=== PATIENT | female | born 1970 | race Caucasian/White ===

== ENCOUNTER 2017-01-21 17:38 | Emergency (ER) | payer BC ==
[2017-01-21 18:02] VITALS: BP 140/93
--- NOTE | 2017-01-21 18:27 | UC ---
Abdominal Pain Female HPI - HPI Summary HPI Summary: LLQ abd pain intermittent x 1 week, worse today. Pt had mechanical fall over a week ago that resulted in back pain. No fever. No N,V,D. Is also concerned that she has swelling or lymph nodes in her left ant neck. - History of Current Complaint Chief Complaint: UCAbdominalPain Stated Complaint: ABD PAIN Time Seen by Provider: 01/21/17 18:10 Hx Obtained From: Patient Hx Last Menstrual Period: may ?: No Onset/Duration: Gradual Onset, Lasting Days, Still Present Timing: Constant Severity Initially: Moderate Pain Intensity: 5 Location: Discrete At: LLQ Radiates: Yes Radiates to: Back Character: Aching, Dull Aggravating Factor(s): Nothing Alleviating Factor(s): Nothing Associated Signs and Symptoms: Positive: Back Pain. Negative: Fever, Urinary Symptoms, Nausea, Vomiting, Diarrhea - Risk Factors Ectopic Risk Factor: Negative Ovarian Torsion Risk Factor: Negative Allergies/Adverse Reactions: Allergies Allergy/AdvReac Type Severity Reaction Status Date / Time Amoxicillin [From Augmentin] Allergy Unknown Verified 01/21/17 19:29 Reaction Details Ciprofloxacin [From Cipro] Allergy Unknown Verified 01/21/17 19:29 Reaction Details Clavulanic Acid Allergy Unknown Verified 01/21/17 19:29 [From Augmentin] Reaction Details Meperidine [From Demerol HCl] AdvReac Severe Hallucinati Verified 01/21/17 19:29 ons MORPHINE AdvReac Severe Hallucinati Uncoded 01/21/17 19:29 ons Home Medications: Home Medications Cholecalciferol [Vitamin D] 01/21/17 [History] PMH/Surg Hx/FS Hx/Imm Hx Endocrine History Of: Reports: Diabetes Respiratory History Of: Reports: Asthma - Surgical History Surgical History: Yes Surgery Procedure, Year, and Place: TONSILLECTOMY, 2 MISCARRIAGES, TUBAL LIGATION - Family History Known Family History: Positive: Hypertension - Social History Lives: With Family Alcohol Use: Rare Substance Use Type: None Smoking Status (MU): Former Smoker Type: Cigarettes Have You Smoked in the Last Year: No When Did the Patient Quit Smoking/Using Tobacco: 2002 Review of Systems Constitutional: Negative Skin: Negative Eyes: Negative ENT: Negative Respiratory: Negative Cardiovascular: Negative Gastrointestinal: Abdominal Pain Genitourinary: Negative Motor: Negative Neurovascular: Negative Musculoskeletal: Arthralgia - back pain Neurological: Negative Psychological: Negative All Other Systems Reviewed And Are Negative: Yes Physical Exam Triage Information Reviewed: Yes Appearance: Well-Appearing, Well-Nourished, Pain Distress Vital Signs: Initial Vital Signs Temp 97.1 F 01/21/17 17:56 Pulse 87 01/21/17 17:56 Resp 16 01/21/17 17:56 BP 140/93 01/21/17 17:56 Pulse Ox 96 01/21/17 17:56 Vital Signs Reviewed: Yes Eyes: Positive: Conjunctiva Clear ENT: Positive: Normal ENT inspection Neck: Positive: Supple, Nontender, No Lymphadenopathy Respiratory: Positive: Lungs clear, Normal breath sounds, No respiratory distress Cardiovascular: Positive: RRR, No Murmur, Pulses Normal, Brisk Capillary Refill Abdomen Description: Positive: Soft, Guarding - LLQ, Other: - tenderness LLQ, + guarding. Negative: Nontender, No Organomegaly, CVA Tenderness (R), CVA Tenderness (L), Distended, Hernia @, Hepatomegaly, McBurney's Point Tenderness, Peritoneal Signs, Pulsatile Mass, Splenomegaly Bowel Sounds: Positive: Present Musculoskeletal: Positive: Strength Intact, ROM Intact Neurological: Positive: Alert, Muscle Tone Normal Psychological Exam: Normal Skin Exam: Normal Abd Pain Female Course/Dx - Course Course Of Treatment: Pt's urine does not reveal the source of her abd pain. Needs higher level of care. Transfer to ED by private car - Differential Dx/Diagnosis Differential Diagnosis: ACS, Bowel Obstruction, Constipation, Diverticulitis, Renal Colic, Urinary Tract Infection Provider Diagnoses: LLQ abd pain. elevated BP without dx of HTN. glucosuria Discharge - Discharge Plan Condition: Stable Disposition: AGAINST MEDICAL ADVICE Referrals: iLsa Boucher MD [Primary Care Provider] -
== END 2017-01-21 18:59 | disposition left against medical advice (07) ==
LOC: UCEAST 17:38
DX: R10.32 Left lower quadrant pain (principal); R81 Glycosuria; R03.0 Elevated blood-pressure reading, without diagnosis of hypertension; Z32.02 Encounter for pregnancy test, result negative; E11.9 Type 2 diabetes mellitus without complications; J45.909 Unspecified asthma, uncomplicated; Z88.5 Allergy status to narcotic agent; Z88.1 Allergy status to other antibiotic agents; Z87.891 Personal history of nicotine dependence
CPT/HCPCS: 81003; 84702; 99212; G0463

== ENCOUNTER 2017-01-21 19:16 | Emergency (ER) | payer BC ==
[2017-01-21] MEDS ORDERED: NS 0.9% 1000 ML* 1,000 ML IV ONE (20:18)
[2017-01-21 20:35] LABS: Hematocrit 41 % (35-47); Hemoglobin 13.7 g/dl (12.0-16.0); Mean Corpuscular HGB Conc 33 g/dl (31-36); Mean Corpuscular Hemoglobin 29 pg (27-31); Mean Corpuscular Volume 86 fL (80-97); Mean Platelet Volume 9 um3 (7.4-10.4); Red Cell Distribution Width 14 % (10.5-15); White Blood Count 9.7 10^3/ul (3.5-10.8)
[2017-01-21 20:50] LABS: Albumin 4.1 g/dL (3.2-5.2); BUN/Creatinine Ratio 17.5 (8-20); C Reactive Protein 2.01 mg/L (< 5.00); Calcium 9.2 mg/dL (8.6-10.3); EGFR African American 130.3 (>60); EGFR Non-African American 101.3 (>60); Globulin 2.5 g/dL (2-4); Potassium 3.5 mmol/L (3.5-5.0); Total Bilirubin 0.5 mg/dL (0.2-1.0); Total Protein 6.6 g/dL (6.4-8.9)
[2017-01-21 21:40] LABS: Urine Bilirubin Negative (Negative); Urine Glucose 2+(150 mg/dL) (Negative); Urine Nitrite Negative (Negative)
[2017-01-21] MEDS ORDERED: Iohexol 300* (CONTRAST) 10 ML SDV IV ONE (22:08)
[2017-01-21] MEDS ORDERED: Iodixanol* (CONTRAST) 320 MG/ML 100 ML SDV IV ONE (22:29)
[2017-01-21 23:51] VITALS: BP 138/81
--- NOTE | 2017-01-22 00:20 | ED ---
Jayson Jovel Michael, scribed for Jacque Martinez MD on 01/21/17 at 2014 . Abdominal Pain/Female - HPI Summary HPI Summary: 46 y/o female was referred to the ED by [facility] presenting with constant LLQ abd pain that started one week ago. The pt states that the pain waxes and wanes. The pain is aggravated with movement, and it does not radiate to the back. The pt states she had a mechanical fall over one week ago resulting in back pain. She denies n/v/d, dysuria, fever, and constipation. The PMHx is significant for DM, anxiety, and ADHD. - History of Current Complaint Chief Complaint: EDAbdPain Stated Complaint: ABD PAIN Hx Obtained From: Patient, Medical Records Hx Last Menstrual Period: may Onset/Duration: Gradual Onset, Lasting Weeks, Still Present Timing: Constant Severity Initially: Mild Severity Currently: Mild Pain Intensity: 1 Pain Scale Used: 0-10 Numeric Location: Discrete At: LLQ Radiates: No Associated Signs and Symptoms: Positive: Back Pain. Negative: Fever, Constipation, Urinary Symptoms, Nausea, Vomiting, Diarrhea Allergies/Adverse Reactions: Allergies Allergy/AdvReac Type Severity Reaction Status Date / Time Amoxicillin [From Augmentin] Allergy Unknown Verified 01/21/17 19:29 Reaction Details Ciprofloxacin [From Cipro] Allergy Unknown Verified 01/21/17 19:29 Reaction Details Clavulanic Acid Allergy Unknown Verified 01/21/17 19:29 [From Augmentin] Reaction Details Meperidine [From Demerol HCl] AdvReac Severe Hallucinati Verified 01/21/17 19:29 ons MORPHINE AdvReac Severe Hallucinati Uncoded 01/21/17 19:29 ons PMH/Surg Hx/FS Hx/Imm Hx Endocrine/Hematology History: Reports: Hx Diabetes Respiratory History: Reports: Hx Asthma Psychiatric History: Reports: Hx Anxiety, Hx Attention Deficit Hyperactivity Disorder - Cancer History Hx Chemotherapy: No Hx Radiation Therapy: No - Surgical History Surgery Procedure, Year, and Place: TONSILLECTOMY, 2 MISCARRIAGES, TUBAL LIGATION Infectious Disease History: No Infectious Disease History: 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 Negative: Vomiting, Diarrhea, Nausea Negative: dysuria All Other Systems Reviewed And Are Negative: Yes Physical Exam Triage Information Reviewed: Yes Vital Signs On Initial Exam: Initial Vitals Temp Pulse Resp BP Pulse Ox 98.3 F 82 16 155/89 98 01/21/17 19:20 01/21/17 19:20 01/21/17 19:20 01/21/17 19:20 01/21/17 19:20 Vital Signs Reviewed: Yes Appearance: Positive: Well-Appearing, No Pain Distress Skin: Positive: Warm, Skin Color Reflects Adequate Perfusion, Dry Eyes: Positive: EOMI, ZULEYMA ENT: Positive: Pharynx normal, TMs normal Neck: Positive: Supple, Nontender Respiratory/Lung Sounds: Positive: Clear to Auscultation, Breath Sounds Present. Negative: Rales, Rhonchi, Wheezes Cardiovascular: Positive: RRR, Other - no gallops. Negative: Murmur, Rub Abdomen Description: Positive: Soft, Other: - no rebound. Negative: Nontender - LLQ pain radiates to flank pain-worse with movement, Distended, Guarding Bowel Sounds: Positive: Present Musculoskeletal: Positive: Strength/ROM Intact. Negative: Edema Left, Edema Right Neurological: Positive: Sensory/Motor Intact, Alert, Oriented to Person Place, Time, CN Intact II-III Psychiatric: Positive: Affect/Mood Appropriate Diagnostics - Vital Signs Vital Signs Temp Pulse Resp BP Pulse Ox 01/21/17 19:25 98.3 F 82 16 155/89 98 01/21/17 19:20 98.3 F 82 16 155/89 98 - Laboratory Lab Results: Lab Results 01/21/17 01/21/17 01/21/17 Range/Units 20:29 20:29 21:30 WBC 9.7 (3.5-10.8) 10^3/ul RBC 4.80 (4.0-5.4) 10^6/ul Hgb 13.7 (12.0-16.0) g/dl Hct 41 (35-47) % MCV 86 (80-97) fL MCH 29 (27-31) pg MCHC 33 (31-36) g/dl RDW 14 (10.5-15) % Plt Count 261 (150-450) 10^3/ul MPV 9 (7.4-10.4) um3 Neut % (Auto) 53.7 (38-83) % Lymph % (Auto) 38.1 (25-47) % Darke % (Auto) 5.8 (1-9) % Eos % (Auto) 1.6 (0-6) % Baso % (Auto) 0.8 (0-2) % Absolute Neuts (auto) 5.2 (1.5-7.7) 10^3/ul Absolute Lymphs (auto) 3.7 (1.0-4.8) 10^3/ul Absolute Monos (auto) 0.6 (0-0.8) 10^3/ul Absolute Eos (auto) 0.2 (0-0.6) 10^3/ul Absolute Basos (auto) 0.1 (0-0.2) 10^3/ul Absolute Nucleated RBC 0.03 10^3/ul Nucleated RBC % 0.3 Sodium 135 (133-145) mmol/L Potassium 3.5 (3.5-5.0) mmol/L Chloride 102 (101-111) mmol/L Carbon Dioxide 25 (22-32) mmol/L Anion Gap 8 (2-11) mmol/L BUN 11 (6-24) mg/dL Creatinine 0.63 (0.51-0.95) mg/dL Est GFR ( Amer) 130.3 (>60) Est GFR (Non-Af Amer) 101.3 (>60) BUN/Creatinine Ratio 17.5 (8-20) Glucose 193 H (70-100) mg/dL Calcium 9.2 (8.6-10.3) mg/dL Total Bilirubin 0.50 (0.2-1.0) mg/dL AST 13 (13-39) U/L ALT 18 (7-52) U/L Alkaline Phosphatase 59 (34-104) U/L C-Reactive Protein 2.01 (< 5.00) mg/L Total Protein 6.6 (6.4-8.9) g/dL Albumin 4.1 (3.2-5.2) g/dL Globulin 2.5 (2-4) g/dL Albumin/Globulin Ratio 1.6 (1-3) Lipase 15 (11.0-82.0) U/L Beta HCG, Quant 3.88 mIU/mL Urine Color Straw Urine Appearance Clear Urine pH 5.0 (5-9) Ur Specific [place] 1.005 L (1.010-1.030) Urine Protein Negative (Negative) Urine Ketones Negative (Negative) Urine Blood Negative (Negative) Urine Nitrate Negative (Negative) Urine Bilirubin Negative (Negative) Urine Urobilinogen Negative (Negative) Ur Leukocyte Esterase Negative (Negative) Urine Glucose 2+(150 mg/dl) H (Negative) Result Diagrams: 01/21/17 20:29 01/21/17 20:29 Lab Statement: Any lab studies that have been ordered have been reviewed, and results considered in the medical decision making process. - CT CT ABD/PEL CT Interpretation: Positive (See Comments) - 3.0 cm right ovarian cyst without free fluid. fatty liver. moderate-sized hiatal hernia. Moderate-sized fat containing umbilical hernia. CT Interpretation Completed By: Radiologist Abdominal Pain Fem Course/Dx - Course Course Of Treatment: 46 yo female who did lots of heavy lifting last week and pulled her back and then had left flank and llq pain persistently over the last week, pain was worse with movement, labs and ct did not have acute findings. All of the findings on the CT were discussed with the pt, she did not require pain meds and will followup with her pmd - Diagnoses Provider Diagnoses: Abdominal pain Discharge - Discharge Plan Condition: Stable Disposition: HOME The documentation as recorded by the Jayson wang Michael accurately reflects the service I personally performed and the decisions made by me, Jacque Martinez MD.
--- NOTE | 2017-01-22 08:08 | RAD ---
INDICATION: Left lower quadrant pain COMPARISON: CT October 12, 2007 TECHNIQUE: Axial source images were obtained from the hemidiaphragms to the symphysis pubis following administration of oral and intravenous contrast. 100 mL Omnipaque 300 was utilized. Coronal and sagittal reconstructed images were acquired. Lung bases: The lung bases are clear. Liver: The liver is mildly enlarged with findings of hepatic steatosis. There are no masses. There is no ductal dilatation. Gallbladder: There are no calcified gallstones. There is no evidence of wall thickening or pericholecystic fluid. Spleen: The spleen is normal in size. There are no masses. Pancreas: There is no focal pancreatic mass or ductal dilatation. Adrenal glands: There is no evidence of adrenal mass. Kidneys: The kidneys are normal in size and position. There are prompt nephrograms and there is prompt excretion bilaterally. There are no renal parenchymal masses. There is no evidence of nephrolithiasis. Adenopathy: There is no evidence of adenopathy by size criteria. Fluid collections: There are no free or localized fluid collections. Vessels:There are no significant atherosclerotic changes involving the aorta. There is no focal aneurysm. The iliac vessels are normal in caliber. The IVC appears normal. GI tract: There are no acute CT bowel findings. There is no obstruction. There is a large hiatal hernia. The small bowel appears normal. The lower GI tract is normal. The cecum, ileocecal valve, and terminal ileum appear normal. The appendix is visualized and appear normal. Pelvic organs: The uterus appears normal. There is a 3.1 cm right adnexal cyst. Bladder: There are no bladder masses. Abdominal and pelvic soft tissues: There is a fat-containing periumbilical hernia. Osseous structures: There are no acute osseous findings. Other: None IMPRESSION: 1. No acute CT findings. No mass or inflammatory change. 2. Hepatic steatosis. 3. Large hiatal hernia. 4. Fat-containing periumbilical hernia. 5. 3.1 cm right ovarian cyst.
== END 2017-01-22 00:45 | disposition home or self-care (01) ==
LOC: ED 19:16
DX: M54.9 Dorsalgia, unspecified (principal); N28.89 Other specified disorders of kidney and ureter; K44.9 Diaphragmatic hernia without obstruction or gangrene; R10.32 Left lower quadrant pain; Z87.891 Personal history of nicotine dependence
CPT/HCPCS: 36415; 74177; 80053; 81003; 83690; 84702; 85025; 86140; 96360; 99283; Q9967

== ENCOUNTER 2017-01-29 12:46 | Emergency (ER) | payer SELFPAY ==
[2017-01-29 14:41] VITALS: BP 149/94
[2017-01-29] MEDS ORDERED: cefTRIAXone VIAL(*) 1,000 MG VIAL IM ONE (15:00)
--- NOTE | 2017-01-29 15:03 | UC ---
Skin Complaint HPI - HPI Summary HPI Summary: bug bite 4 days ago spreading pain swelling and erythema the past 4 days erythema mid foream to mid upper arm 1/3 around arm---warm to touch---pt spoke with her pcp who suggested warm compresses--AND THAT HAS NOT HELPED---DOES NOT CHECK HER BLOOD SUGARS AT HOME - History of Current Complaint Chief Complaint: UCSkin Time Seen by Provider: 01/29/17 14:49 Stated Complaint: INFECTED BUG BITE Hx Obtained From: Patient Hx Last Menstrual Period: IRREGULAR ?: No Onset/Duration: Sudden Onset, Lasting Days - 4, Worse Since - past 2 days Skin Exposure Onset/Duration: Days Ago - 4 Timing: Constant Onset Severity: Mild Current Severity: Moderate Location: Discrete - as described on right arm Character: Swelling, Redness, Painful Aggravating: Nothing Alleviating: Nothing Associated Signs & Symptoms: Positive: Negative Related History: Insect Bite/Sting - Allergy/Home Medications Allergies/Adverse Reactions: Allergies Allergy/AdvReac Type Severity Reaction Status Date / Time Amoxicillin [From Augmentin] Allergy Unknown Verified 01/21/17 19:29 Reaction Details Ciprofloxacin [From Cipro] Allergy Unknown Verified 01/21/17 19:29 Reaction Details Clavulanic Acid Allergy Unknown Verified 01/21/17 19:29 [From Augmentin] Reaction Details Meperidine [From Demerol HCl] AdvReac Severe Hallucinati Verified 01/21/17 19:29 ons MORPHINE AdvReac Severe Hallucinati Uncoded 01/21/17 19:29 ons Home Medications: Home Medications Sitagliptin Phosphate [Januvia] 100 mg PO DAILY 01/29/17 [History Confirmed 02/10] Review of Systems Constitutional: Negative Skin: Other - erythema as described on right arm Eyes: Negative ENT: Negative Respiratory: Negative Cardiovascular: Negative Gastrointestinal: Negative Genitourinary: Negative Motor: Negative Neurovascular: Negative Musculoskeletal: Negative Neurological: Negative Psychological: Negative All Other Systems Reviewed And Are Negative: Yes PMH/Surg Hx/FS Hx/Imm Hx Previously Healthy: No Endocrine History Of: Reports: Diabetes Respiratory History Of: Reports: Asthma Psychological History Of: Reports: Anxiety - Surgical History Surgical History: Yes Surgery Procedure, Year, and Place: TONSILLECTOMY, 2 MISCARRIAGES, TUBAL LIGATION - Family History Known Family History: Positive: Hypertension, Diabetes - Social History Occupation: Employed Full-time Lives: With Family Alcohol Use: Rare Substance Use Type: None Smoking Status (MU): Former Smoker Type: Cigarettes Have You Smoked in the Last Year: No When Did the Patient Quit Smoking/Using Tobacco: 2002 Physical Exam Triage Information Reviewed: Yes Appearance: Well-Appearing, No Pain Distress, Well-Nourished Vital Signs: Initial Vital Signs Temp 98.7 F 01/29/17 14:37 Pulse 101 01/29/17 14:37 Resp 16 01/29/17 14:37 BP 149/94 01/29/17 14:37 Pulse Ox 97 01/29/17 14:37 Vital Signs Reviewed: Yes Eye Exam: Normal Eyes: Positive: Conjunctiva Clear ENT Exam: Normal ENT: Positive: Normal ENT inspection, Hearing grossly normal. Negative: Nasal congestion, Nasal drainage, Trismus, Muffled/hoarse voice Dental Exam: Normal Neck exam: Normal Neck: Positive: Supple, Nontender, No Lymphadenopathy Respiratory Exam: Normal Respiratory: Positive: Chest non-tender, Lungs clear, Normal breath sounds, No respiratory distress, No accessory muscle use Cardiovascular Exam: Normal Cardiovascular: Positive: No Murmur, Pulses Normal, Brisk Capillary Refill, Tachycardia Musculoskeletal Exam: Normal Musculoskeletal: Positive: Strength Intact, ROM Intact, Edema @ - right arm as described Neurological Exam: Normal Neurological: Positive: Alert, Muscle Tone Normal Psychological Exam: Normal Skin Exam: Other Skin: Positive: Other - apparent insect bite right arm near AC Diagnostics - Laboratory Diagnostic Studies Completed/Ordered: FSBS 241 Course/Dx - Course Course Of Treatment: rocephin, keflex/bactrim follow closely with pcp, htn education - Differential Diagnoses - Skin Complaint Differential Diagnoses: Cellulitis, Impetigo, Local Allergic Reaction - Diagnoses Provider Diagnoses: Cellulitis, hyperglycemia, High blood pressure with out dx of hypertension Discharge - Discharge Plan Condition: Stable Disposition: HOME Prescriptions: Cephalexin CAP* [Keflex CAP*] 500 mg PO QID #40 cap Sulfamethox/Trimethoprim DS* [Bactrim DS 800/160 TAB*] 1 tab PO BID #20 tab Patient Education Materials: Cellulitis (ED), Hypertension (ED), Heat Pack Application (ED), Diabetic Hyperglycemia (ED) Forms: *Work Release Referrals: Blanka West MD [Primary Care Provider] - 3 Days
[2017-01-29] MEDS ORDERED: Lidocaine 1% MPF* 2 ML VIAL ONE (15:14)
== END 2017-01-29 15:39 | disposition home or self-care (01) ==
LOC: UCEAST 12:46
DX: L03.113 Cellulitis of right upper limb (principal); E13.65 Other specified diabetes mellitus with hyperglycemia; J45.909 Unspecified asthma, uncomplicated; R03.0 Elevated blood-pressure reading, without diagnosis of hypertension; F41.9 Anxiety disorder, unspecified; Z88.3 Allergy status to other anti-infective agents; Z88.5 Allergy status to narcotic agent; Z87.891 Personal history of nicotine dependence
CPT/HCPCS: 96372; 99212; G0463; J0696

== ENCOUNTER 2017-02-01 09:13 | Emergency (ER) | payer SELFPAY ==
[2017-02-01] MEDS ORDERED: Ibuprofen TAB* 600 MG PO ONE (10:33)
--- NOTE | 2017-02-01 10:39 | ED ---
Skin Complaint - HPI Summary HPI Summary: Patient presents after having suffered a bug bite a week ago that was evaluated by [facility]. She was placed on antibiotics and felt that she was improving until she awoke with severe pain in her right elbow this AM. The swelling and redness from the bite have discipated, but now the inside of her elbow is extremely tender to touch. She has pain with movement of the joint but has FROM. She took Tylenol this AM which helped with pain. She denies fever, chills, N/V/D, or restricted movement of the elbow, wrist or hand. The bug bite has resolved. - History of Current Complaint Chief Complaint: EDGeneral Time Seen by Provider: 02/01/17 09:46 Stated Complaint: RT ELBOW PAIN Hx Obtained From: Patient Hx Last Menstrual Period: IRREGULAR Onset/Duration: Started Days Ago, Traumatic - bug bite, Resolved Timing: Constant Onset Severity: Severe Current Severity: Moderate Pain Intensity: 5 Skin Location: Arm Character: Pain Aggravating Symptom(s): Touch Alleviating Symptom(s): OTC Meds - tylenol helps Associated Signs & Symptoms: Tenderness Related History: Insect Bite/Sting - Allergy/Home Medications Allergies/Adverse Reactions: Allergies Allergy/AdvReac Type Severity Reaction Status Date / Time Amoxicillin [From Augmentin] Allergy Unknown Verified 01/21/17 19:29 Reaction Details Ciprofloxacin [From Cipro] Allergy Unknown Verified 01/21/17 19:29 Reaction Details Clavulanic Acid Allergy Unknown Verified 01/21/17 19:29 [From Augmentin] Reaction Details Meperidine [From Demerol HCl] AdvReac Severe Hallucinati Verified 01/21/17 19:29 ons MORPHINE AdvReac Severe Hallucinati Uncoded 01/21/17 19:29 ons PMH/Surg Hx/FS Hx/Imm Hx Endocrine/Hematology History: Reports: Hx Diabetes Respiratory History: Reports: Hx Asthma Psychiatric History: Reports: Hx Anxiety, Hx Attention Deficit Hyperactivity Disorder - Cancer History Hx Chemotherapy: No Hx Radiation Therapy: No - Surgical History Surgery Procedure, Year, and Place: TONSILLECTOMY, 2 MISCARRIAGES, TUBAL LIGATION Infectious Disease History: No Infectious Disease History: Reports: History Other Infectious Disease - HSV-1 Denies: Hx Clostridium Difficile, Hx Hepatitis, Hx Human Immunodeficiency Virus (HIV), Hx of Known/Suspected MRSA, Hx Shingles, Hx Tuberculosis, Hx Known/ Suspected VRE, Hx Known/Suspected VRSA, Traveled Outside the [place] in Last 30 Days - Family History Known Family History: Positive: Hypertension, Diabetes - Social History Occupation: Employed Full-time Lives: With Family Alcohol Use: Rare Substance Use Type: Reports: None Smoking Status (MU): Former Smoker Type: Cigarettes Have You Smoked in the Last Year: No Review of Systems Negative: Fever, Chills Positive: Arthralgia - left elbow. Negative: Myalgia, Decreased ROM, Edema Negative: Rash Negative: Weakness, Paresthesia, Numbness All Other Systems Reviewed And Are Negative: Yes Physical Exam Triage Information Reviewed: Yes Vital Signs On Initial Exam: Initial Vitals Temp Pulse Resp BP Pulse Ox 97.9 F 82 20 150/88 99 02/01/17 09:20 02/01/17 09:20 02/01/17 09:20 02/01/17 09:20 02/01/17 09:20 Vital Signs Reviewed: Yes Appearance: Positive: Well-Appearing, Pain Distress, Obese Skin: Positive: Warm, Skin Color Reflects Adequate Perfusion, Dry, Soft. Negative: Erythema @ Head/Face: Positive: Normal Head/Face Inspection Eyes: Positive: EOMI, ZULEYMA, Conjunctiva Clear ENT: Positive: Hearing grossly normal Respiratory/Lung Sounds: Positive: Breath Sounds Present Cardiovascular: Positive: RRR Musculoskeletal: Positive: Strength/ROM Intact, Pain @ - TTP right medial epicondyle; non-tender lateral epicondyle or olecranon. Negative: Edema Right Neurological: Positive: Sensory/Motor Intact, Alert, Oriented to Person Place, Time, NV Bundle Intact Distally Psychiatric: Positive: Affect/Mood Appropriate AVPU Assessment: Alert - [place] Coma Scale Coma Scale Total: 15 Diagnostics - Vital Signs Vital Signs Temp Pulse Resp BP Pulse Ox 02/01/17 09:22 97.9 F 83 20 150/88 100 02/01/17 09:20 97.9 F 82 20 150/88 99 - Laboratory Result Diagrams: 02/01/17 11:00 02/01/17 11:00 Lab Statement: Any lab studies that have been ordered have been reviewed, and results considered in the medical decision making process. Course/Dx - Differential Diagnoses - Skin Complaint Differential Diagnoses: Cellulitis, Local Allergic Reaction, MRSA, Urticaria, Viral Exanthem - Diagnoses Provider Diagnoses: Right elbow pain Discharge - Discharge Plan Condition: Stable Disposition: HOME Referrals: Blanka West MD [Primary Care Provider] - Additional Instructions: Continue taking your antibiotics as prescribed until they are completely gone. Take ibuprofen 600mg three times daily with meals for the next 3-5 days to reduce pain. Massage the area of pain to decrease sensitivity. Follow-up with your primary care provider as needed. Return to the emergency department if symptoms worsen.
[2017-02-01 11:11] LABS: Hematocrit 46 % (35-47); Hemoglobin 14.9 g/dl (12.0-16.0); Mean Corpuscular HGB Conc 33 g/dl (31-36); Mean Corpuscular Hemoglobin 29 pg (27-31); Mean Corpuscular Volume 87 fL (80-97); Mean Platelet Volume 9 um3 (7.4-10.4); Red Blood Count 5.23 10^6/ul (4.0-5.4); Red Cell Distribution Width 14 % (10.5-15); White Blood Count 8.5 10^3/ul (3.5-10.8)
[2017-02-01 11:25] LABS: Albumin 4.3 g/dL (3.2-5.2); BUN/Creatinine Ratio 14.8 (8-20); C Reactive Protein 2.87 mg/L (< 5.00); Calcium 9.5 mg/dL (8.6-10.3); EGFR African American 97.5 (>60); EGFR Non-African American 75.8 (>60); Total Bilirubin 0.6 mg/dL (0.2-1.0); Total Protein 7.3 g/dL (6.4-8.9)
[2017-02-01 12:13] VITALS: BP 146/79
[2017-02-01 12:20] LABS: Erythrocyte Sed Rate 10 mm/Hr (0-14)
== END 2017-02-01 12:12 | disposition home or self-care (01) ==
LOC: ED 09:13
DX: M25.521 Pain in right elbow (principal); J45.909 Unspecified asthma, uncomplicated; Z88.5 Allergy status to narcotic agent; Z88.0 Allergy status to penicillin; F41.9 Anxiety disorder, unspecified; Z87.891 Personal history of nicotine dependence
CPT/HCPCS: 36415; 80053; 85025; 85652; 86140; 99282; A9270-GY

== ENCOUNTER 2017-05-31 14:20 | Emergency (ER) | payer SELFPAY ==
[2017-05-31 14:29] VITALS: BP 140/88
[2017-05-31] MEDS ORDERED: Albuterol 2.5 MG/3 ML NEB.SOL* (0.083%) INH ONE (15:23)
--- NOTE | 2017-05-31 15:28 | UC ---
Respiratory Complaint HPI - HPI Summary HPI Summary: This is a 47 yo female with asthma who presents with c/o cough, SOB and ST. No fever, but she has felt flushed. She reports associated ear fullness and ST. No nausea, but she vomited once associated with a coughing fit. She has been using Nyquil. She has not used her albuterol inhaler. She states that she rarely needs her albuterol apart from acute illness or exercise. - History of Current Complaint Chief Complaint: UCGeneralIllness Stated Complaint: URI Hx Last Menstrual Period: 1 year ago - Allergies/Home Medications Allergies/Adverse Reactions: Allergies Allergy/AdvReac Type Severity Reaction Status Date / Time Meperidine [From Demerol HCl] AdvReac Severe Hallucinati Verified 05/31/17 14:30 ons Amoxicillin [From Augmentin] AdvReac Unknown Verified 05/31/17 14:30 Reaction Details Ciprofloxacin [From Cipro] AdvReac Unknown Verified 05/31/17 14:30 Reaction Details Clavulanic Acid AdvReac Unknown Verified 05/31/17 14:30 [From Augmentin] Reaction Details MORPHINE AdvReac Severe Hallucinati Uncoded 05/31/17 14:30 ons Home Medications: Home Medications Cephalexin CAP* [Keflex 500 CAP*] 2 tab PO ONCE 05/31/17 [History Confirmed 01/11] PMH/Surg Hx/FS Hx/Imm Hx Respiratory History: Asthma - Surgical History Surgical History: Yes Surgery Procedure, Year, and Place: TONSILLECTOMY, 2 MISCARRIAGES, TUBAL LIGATION - Family History Known Family History: Positive: Hypertension, Diabetes - Social History Alcohol Use: Rare Substance Use Type: None Smoking Status (MU): Former Smoker Type: Cigarettes Have You Smoked in the Last Year: No When Did the Patient Quit Smoking/Using Tobacco: 2002 Review of Systems Constitutional: Fatigue Skin: Negative Eyes: Negative ENT: Sore Throat, Sinus Congestion Respiratory: Shortness Of Breath, Cough Cardiovascular: Negative Gastrointestinal: Negative Genitourinary: Negative Motor: Negative Neurovascular: Negative Musculoskeletal: Negative Neurological: Negative Psychological: Negative All Other Systems Reviewed And Are Negative: Yes Physical Exam Triage Information Reviewed: Yes Appearance: Ill-Appearing - mildly Vital Signs: Initial Vital Signs Temp 97.7 F 05/31/17 14:27 Pulse 78 05/31/17 14:27 Resp 16 05/31/17 14:27 BP 140/88 05/31/17 14:27 Pulse Ox 98 05/31/17 14:27 Vital Signs Reviewed: Yes ENT: Positive: Hearing grossly normal, Pharynx normal, TM dull - mildly. Negative: Tonsillar swelling, Tonsillar exudate Neck: Positive: Nontender, No Lymphadenopathy Respiratory: Positive: Chest non-tender, Rhonchi. Negative: Crackles, Wheezing Cardiovascular: Positive: RRR, No Murmur Abdomen Description: Positive: Nontender, Soft Musculoskeletal: Positive: Strength Intact, No Edema Neurological Exam: Normal Neurological: Positive: Alert Psychological Exam: Normal Skin Exam: Normal UC Diagnostic Evaluation - Laboratory O2 Sat by Pulse Oximetry: 98 Re-Evaluation - Re-Evaluation First Eval Re-Evaluation Time: 16:00 Change: Improved Comment: improved air exchange and reduced rhonchi, still coughing frequently Respiratory Course/Dx - Course Course Of Treatment: This is a 47 yo female with h/o mild intermittent asthma who presents with cough, congestion and SOB. Some improvement noted with albuterol neb. Symptoms likely due to an acute viral illness that has exacerbated her asthma. Recommend nebulized albuterol and steroid taper with continued use of decongestant - Differential Dx/Diagnosis Differential Diagnosis/HQI/PQRI: Asthma, Bronchitis, Laryngitis, Sinusitis Provider Diagnoses: 1. Asthma exacerbation. 2. URI Discharge - Discharge Plan Condition: Stable Disposition: HOME Prescriptions: Albuterol 2.5MG/3ML (0.083%)* [Ventolin 2.5 MG/3 ML NEB.NAVJOT*] 2.5 mg INH Q4H # 30 neb.navjot Methylprednisolone [Medrol Dosepak 4 MG*] 4 mg PO .SEE IRIS INSTRUCTION #1 iris Patient Education Materials: Cold Symptoms (ED), Bronchospasm (ED) Referrals: Blanka West MD [Primary Care Provider] - If Needed Additional Instructions: Activity: as tolerated Instructions: 1. Use albuterol and steroid pills as directed 2. Continue use of decongestants 3. Follow up with your PCP within the next week if you are not improving
== END 2017-05-31 16:12 | disposition home or self-care (01) ==
LOC: UCEAST 14:20
DX: J45.901 Unspecified asthma with (acute) exacerbation (principal); Z88.1 Allergy status to other antibiotic agents; Z88.5 Allergy status to narcotic agent; Z87.891 Personal history of nicotine dependence
CPT/HCPCS: 99212; G0463